=== PATIENT | female | born 1975 | race African-American/Black ===

== ENCOUNTER → 2024-07-09 11:36 | Outpatient (REF) | payer BC, SELFPAY | LOC: HWWDC 11:36 | PROVIDERS: ATTENDING PHYSICIAN Nurse Practitioner Women's Health; FAMILY PHYSICIAN Family Medicine | DX: Z12.31 Encounter for screening mammogram for malignant neoplasm of breast (principal) | CPT/HCPCS: 77063; 77067 ==

== ENCOUNTER → 2024-12-22 13:03 | Outpatient (REF) | payer BC, SELFPAY | LOC: HWCARD 13:03 | PROVIDERS: ATTENDING PHYSICIAN Orthopaedic Surgery; FAMILY PHYSICIAN Family Medicine | DX: S82.62XA Displaced fracture of lateral malleolus of left fibula, initial encounter for closed fracture (principal); Z01.818 Encounter for other preprocedural examination | CPT/HCPCS: 93005 ==